=== PATIENT | male | born 1965 | race Caucasian/White ===

== ENCOUNTER 2017-01-31 13:54 | Emergency (ER) | payer MEDICAID ==
[~2017-01-31] VITALS: Ht 165.1 cm; Wt 102.0 kg
[2017-01-31 14:44] VITALS: Ht 165.1 cm; Wt 102.0 kg
--- NOTE | 2017-01-31 16:14 | ERD ---
ER Documentation Chief Complaint Chief Complaint htn, rasmussen, dizziness; symptoms started yesterday HPI 52-year-old male history of obesity, hypertension presents with headache, dizziness that started 2 days ago. She he describes of a diffuse headache, going from the frontal and occipital regions described as pressure-like, moderate with a lightheaded sensation. Patient states that he has vertiginous dizziness when the room is spinning, is worse when he stands up or turns. His history includes hypertension, his medications that he takes regularly are metoprolol, amlodipine and enalapril with hydrochlorothiazide which she has taken today. He has not had any chest pain, shortness of breath. ROS All systems reviewed and are negative except as per history of present illness. Medications Home Meds Active Scripts Meclizine Hcl* (Antivert*) 12.5 Mg Tab, 12.5 MG PO Q6H Y for DIZZINESS, #20 TAB Prov:ANTHONY BELLE PA-C 01/31/17 Acetaminophen* (Tylophen*) 500 Mg Capsule, 1 CAP PO Q6H Y for PAIN AND OR ELEVATED TEMP, #20 CAP Prov:ANTHONY BELLE PA-C 01/31/17 Allergies Allergies: Coded Allergies: No Known Allergy (Unverified , 01/31/17) Physical Exam Vitals Vital Signs Date Time Temp Pulse Resp B/P Pulse Ox O2 Delivery O2 Flow Rate FiO2 01/31/17 14:44 99.4 100 16 168/94 96 Physical Exam General: Well-developed, well-nourished. The patient appears in no acute distress. HEENT: Head is normocephalic, atraumatic. No scleral icterus. Pupils are equal , round, and reactive. Neck: Supple. Nontender. Lungs: Clear to auscultation. Normal air movement. Heart: Regular rate and rhythm. S1 and S2 are normal. No murmurs, gallops, or rubs. Abdomen: Soft, nontender, nondistended. Bowel sounds are normoactive. Extremities: No clubbing or cyanosis. Normal pulses. Moving extremities x 4. No weakness. Neurologic: Alert and oriented 3. No focal deficits. Skin: Normal turgor. No rash or lesions. Result Diagram: 01/31/17 1615 01/31/17 1615 Results 24 hrs Laboratory Tests Test 01/31/17 16:13 11/7/17 16:15 Bedside Glucose 111mg/dL White Blood Count 7.110^3/ul Red Blood Count 5.5210^6/ul Hemoglobin 16.0g/dl Hematocrit 45.4% Mean Corpuscular Volume 82.2fl Mean Corpuscular Hemoglobin 29.0pg Mean Corpuscular Hemoglobin Concent 35.2g/dl Red Cell Distribution Width 12.3% Platelet Count 11992^3/UL Mean Platelet Volume 9.8fl Neutrophils % 56.5% Lymphocytes % 30.7% Monocytes % 11.3% Eosinophils % 0.4% Basophils % 0.8% Nucleated Red Blood Cells % 0.0/100WBC Neutrophils # 4.010^3/ul Lymphocytes # 2.210^3/ul Monocytes # 0.810^3/ul Eosinophils # 0.010^3/ul Basophils # 0.110^3/ul Nucleated Red Blood Cells # 0.010^3/ul Urine Color STRAW Urine Clarity CLEAR Urine pH 6.0 Urine Specific [place] 1.012 Urine Ketones NEGATIVEmg/dL Urine Nitrite NEGATIVEmg/dL Urine Bilirubin NEGATIVEmg/dL Urine Urobilinogen NEGATIVEmg/dL Urine Leukocyte Esterase NEGATIVELeu/ul Urine Hemoglobin NEGATIVEmg/dL Urine Glucose NEGATIVEmg/dL Urine Total Protein NEGATIVEmg/dl Sodium Level 141mmol/L Potassium Level 4.0mmol/L Chloride Level 98mmol/L Carbon Dioxide Level 31mmol/L Anion Gap 16 Blood Urea Nitrogen 20mg/dl Creatinine 1.04mg/dl Glucose Level 110mg/dl Calcium Level 9.6mg/dl Current Medications Medications (Trade) Dose Ordered Sig/Francesca Route PRN Reason Start Time Stop Time Status Last Admin Dose Admin Acetaminophen (Tylenol Tab) 650 mg ONCE ONCE PO 01/31/17 16:30 01/31/17 16:31 DC 01/31/17 16:17 DIAGNOSTIC IMAGING REPORT Patient: PALOMO PORRAS : 1965 Age: 51 Sex: M MR #: [id number] DOS: 01/31/17 1606 Ordering MD: ANTHONY BELLE PA-C Location: [facility] Room/Bed: PROCEDURE: CT brain without contrast CLINICAL INDICATION: Headache, dizziness TECHNIQUE: CT of the brain without contrast was performed on a multidetector CT scanner, with multiplanar reformats. One or more of the following dose reduction techniques were used: Automated exposure control, adjustment in mA and / or kV according to patient size, use of iterative reconstructive technique. CTDIvol = 43 mGy; DLP = 720 mGy-cm. COMPARISON: None available FINDINGS: No acute intracranial hemorrhage is identified. No extra-axial fluid collection is seen. There is no mass effect. No midline shift is identified. Ventricles and sulci are within normal limits for size and configuration. The density of the brain is unremarkable. Armendariz-white differentiation is preserved. Atherosclerotic calcifications of the intracranial internal carotid arteries are noted. Calvarium and skull base are intact. Mastoid air cells and imaged paranasal sinuses grossly clear. IMPRESSION: No evidence of acute intracranial pathology. RPTAT: VV .Dmitry Garcia MD, Date Time Electronically viewed and signed by .Dmitry Garcia MD, MD on 01/31/2017 16:42 .O/ CC: ANTHONY BELLE PA-C Procedures/MDM 12-lead EKG(interpreted by supervising physician): Dr Shah Rate/Rhythm: Normal Sinus Rhythm, rate of 89 QRS, ST, T-waves: No changes consistent w/ acute ischemia, no intervals, no dysrhythmias, no ectopy Impression: No evidence of ischemia or arrhythmia DM: 51-year-old male presents emergency department with hypertension, episodes of dizziness. The patient's CT scan head is unremarkable, all labs are normal, EKG shows normal sinus rhythm. There are no ischemic changes, signs of acute coronary syndrome, dissection, pulmonary embolus, his acute stroke or TIA. Patient symptoms of dizziness are most likely a benign positional vertigo, he reports that it is worse when he turns or gets up. He is neurovascularly intact , will be discharged home with Tylenol and Antivert. Additionally I doubt that the patient has any evidence of hypertensive emergency or urgency. His blood pressure is elevated, it is in the 160s over 90s, he was given Tylenol and states that his headache is improved. He is to follow-up with his primary care doctor regarding his blood pressure. Patient's blood pressure was elevated (>120/80) but appears stable without evidence of hypertension emergency or urgency. The patient was counseled about the risks of hypertension and urged to pursue outpatient monitoring and therapy within a week with their primary care physician. Departure Diagnosis: Primary Impression: Dizziness Additional Impression: Hypertension Condition: Good ANTHONY BELLE PA-C Jan 31, 2017 16:14
[2017-01-31] MEDS ORDERED: ACETAMINOPHEN 325 MG TAB PO ONE (16:30)
--- NOTE | 2017-01-31 16:43 | RADRPT ---
PROCEDURE: CT brain without contrast CLINICAL INDICATION: Headache, dizziness TECHNIQUE: CT of the brain without contrast was performed on a multidetector CT scanner, with multi planar reformats. One or more of the following dose reduction techniques were used: Automated expos ure control, adjustment in mA and / or kV according to patient size, use of iterative reconstructive technique. CTDIvol = 43 mGy; DLP = 720 mGy-cm. COMPARISON: None available FINDINGS: No acute intracranial hemorrhage is identified. No extra-axial fluid collection is seen. There is no mass effect. No midline shift is identified. Ventricles and sulci are within normal limits for size and configuration. The density of the brain is unremarkable. Armendariz-white differentiation is preserved. Atherosclerotic calcifications of the intracranial internal carotid arteries are noted. Calvarium and skull base are intact. Mastoid air cells and imaged paranasal sinuses grossly clear. IMPRESSION: No evidence of acute intracranial pathology. RPTAT: VV .Dmitry Garcia MD, MD Date Time Electronically viewed and signed by .Dmitry Garcia MD, on 01/31/2017 16:42 .O/
[2017-01-31] MEDS ORDERED: MECL12.574 PO (17:03)
[2017-01-31] MEDS ORDERED: ACET500C5 PO (17:03)
[2017-01-31 17:10] VITALS: BP 157/95; PULSE 95; RESP 16; TEMP 98.7
== END 2017-01-31 17:11 | disposition home or self-care (01) ==
LOC: FTE 13:54
DX: I10 Essential (primary) hypertension (principal); R42 Dizziness and giddiness
CPT/HCPCS: 36415; 70450; 80048; 81003; 82962; 85025; 93005; Z7502; Z7610

== ENCOUNTER 2018-02-03 00:02 | Emergency (ER) | END 2018-02-03 05:15 | disposition home or self-care (01) ==

== ENCOUNTER 2018-03-15 16:04 | Observation (INO) | END 2018-03-16 17:17 | disposition home or self-care (01) ==